=== PATIENT | female | born 1940 | race Caucasian/White ===

== ENCOUNTER 2017-03-21 15:21 | Inpatient (IN) | payer OTHER ==
[~2017-03-21] VITALS: Ht 157.5 cm; Wt 64.0 kg
[2017-03-21 15:26] VITALS: BP_SYST 145
[2017-03-21] MEDS ORDERED: ASPIRIN 325 MG TABLET PO ONE (15:45)
[2017-03-21] MEDS ORDERED: NITROGLYCERIN 0.4 MG TAB.SUBL SL ONE (15:45)
[2017-03-21] MEDS ORDERED: ALPRAZolam 0.25 MG TABLET PO ONE (16:00)
[2017-03-21 16:05] LABS: BASOPHILS # (AUTO) 0.1 K/uL (0.0-0.2); BASOPHILS % (AUTO) 0.6 % (0.0-2.0); EOSINOPHILS # (AUTO) 0.4 K/uL (0.0-0.4); EOSINOPHILS % (AUTO) 4.9 % (0.0-4.0); HEMATOCRIT 39.1 % (36-48); HEMOGLOBIN 12.9 g/dL (12.0-16.0); LYMPHOCYTES # (AUTO) 3.1 K/uL (1.0-5.5); LYMPHOCYTES % (AUTO) 35.5 % (20.5-51.5); MEAN CORPUSCULAR HEMOGLOBIN 30 pg (27-31); MEAN CORPUSCULAR HGB CONC 33 % (32-36); MEAN CORPUSCULAR VOLUME 89 fL (79.0-98.0); MONOCYTES % (AUTO) 11.8 % (1.7-9.3); NEUTROPHILS # (AUTO) 4.2 K/uL (1.8-7.7); NEUTROPHILS % (AUTO) 47.2 % (40.0-70.0); PLATELET COUNT (AUTO) 355 K/uL (130-430); RED BLOOD CELL COUNT(AUTO) 4.39 MIL/uL (4.2-6.2); RED CELL DISTRIBUTION WIDTH 13.6 % (9.0-15.0); WHITE BLOOD COUNT (AUTO) 8.8 K/uL (4.8-10.8)
[2017-03-21 16:23] LABS: ANION GAP 7 (5-15); CALCIUM 8.7 mg/dL (8.4-11.0); CHLORIDE 104 mmol/L (98-107); CREATININE 0.92 mg/dL (0.55-1.30); GLUCOSE 66 mg/dL (70-99); POTASSIUM 4.1 mmol/L (3.5-5.1); SODIUM SERUM 137 mmol/L (136-145); UREA NITROGEN, BLOOD 21 mg/dL (8-21)
[2017-03-21 16:24] LABS: BILIRUBIN,URINE NEGATIVE (NEGATIVE); CLARITY/URINE SL HAZY (CLEAR); COLOR,URINE YELLOW (YELLOW); GLUCOSE,URINE NEGATIVE (NEGATIVE); KETONES,URINE NEGATIVE (NEGATIVE); LEUKOCYTE ESTERASE ,URINE 2+ (NEGATIVE); NITRITE, URINE NEGATIVE (NEGATIVE); PH,URINE 6.5 (5.0-8.0); PROTEIN URINE NEGATIVE (NEGATIVE); UROBILINOGEN,URINE 0.2 (0.2-1.0)
[2017-03-21 16:25] LABS: INR 0.9 (0.8-1.2); PROTHROMBIN TIME 10.3 SECS (9.5-12.5)
[2017-03-21 16:28] LABS: ALANINE AMINOTRANSFERASE 29 U/L (12-78); ALBUMIN 3.5 g/dL (3.4-4.8); ASPARTATE AMINOTRANSFERASE 23 U/L (10-37); CREATINE KINASE, TOTAL 93 U/L (26-192); TOTAL BILIRUBIN 0.3 mg/dL (0.0-1.0); TOTAL PROTEIN, SERUM 8.4 g/dL (6.4-8.3)
[2017-03-21 16:38] LABS: BLOOD, URINE TRACE (NEGATIVE)
[2017-03-21 16:40] LABS: BACTERIA,URINE MODERATE /HPF (None Seen); MUCUS,URINE None Seen /LPF (None Seen); RBC,URINE 0-3 /HPF (0-3); WBC,URINE 50-80 /HPF (0-3)
[2017-03-21] MEDS ORDERED: NACL 0.9% 1,000 ML IV ONE (17:00)
[2017-03-21] MEDS ORDERED: IOHEXOL 350 mgI/mL, 150 ML INFUS..BTL IV ONE (17:22)
[2017-03-21] MEDS ORDERED: ALPR-372 PO (18:22)
[2017-03-21] MEDS ORDERED: ALBU2.5V7 INH (18:22)
[2017-03-21] MEDS ORDERED: PANT40TA4 PO (18:22)
[2017-03-21] MEDS ORDERED: LISI30TA36 PO (18:22)
[2017-03-21] MEDS ORDERED: AMLO10TA88 PO (18:22)
[2017-03-21 18:33] VITALS: BP_SYST 113
[2017-03-21 20:00] VITALS: BP_SYST 110
[2017-03-21] MEDS ORDERED: ACETAMINOPHEN 325 MG TABLET PO PRN (21:15)
[2017-03-21] MEDS ORDERED: ALPRAZolam 0.25 MG TABLET PO PRN (21:15)
[2017-03-21] MEDS ORDERED: ZOLPIDEM TARTRATE 5 MG TABLET PO PRN (21:15)
[2017-03-21] MEDS ORDERED: INSULIN ASPART 100 UNITS/ML, 10 ML VIAL (NovoLOG) SUBCUT PRN (21:15)
[2017-03-21] MEDS: POTASSIUM CHLORIDE 10 MEQ in D5/0.45 NS 1,000 ML IV SCH (22:15)
[2017-03-22] VITALS (7 sets, daily range): BP systolic 109–132
[2017-03-22] MEDS: ASPIRIN 81 MG TAB.CHEW PO SCH (08:16)
[2017-03-22] MEDS: PANTOPRAZOLE SODIUM 40 MG TAB PO SCH (08:16)
[2017-03-22] MEDS: amLODIPine BESYLATE 10 MG TABLET PO SCH (08:17)
[2017-03-22] MEDS: LISINOPRIL 10 MG TABLET (PRINIVIL) PO SCH (08:17)
[2017-03-22] MEDS: cefTRIAXone 1 GM IVPB PREMIX 50 ML IV SCH (14:29)
[2017-03-22] MEDS: POTASSIUM CHLORIDE 10 MEQ in D5/0.45 NS 1,000 ML IV SCH (17:29)
[2017-03-23 03:40] VITALS: BP_SYST 127
[2017-03-23 08:00] VITALS: BP_SYST 112
[2017-03-23] MEDS: PANTOPRAZOLE SODIUM 40 MG TAB PO SCH (08:47)
[2017-03-23] MEDS: amLODIPine BESYLATE 10 MG TABLET PO SCH (08:47)
[2017-03-23] MEDS: LISINOPRIL 10 MG TABLET (PRINIVIL) PO SCH (08:47)
[2017-03-23] MEDS: ASPIRIN 81 MG TAB.CHEW PO SCH (08:47)
[2017-03-23 12:10] VITALS: BP_SYST 104
[2017-03-23 12:16] VITALS: BP_SYST 104
[2017-03-23] MEDS: cefTRIAXone 1 GM IVPB PREMIX 50 ML IV SCH (12:59)
[2017-03-23 13:11] LABS: A/G RATIO 0.9 (0.7-1.7); ALBUMIN 3.6 g/dL (2.9-4.4); ALPHA-1-GLOBULIN 0.2 g/dL (0.0-0.4); ALPHA-2-GLOBULIN 0.7 g/dL (0.4-1.0); BETA GLOBULIN 0.9 g/dL (0.7-1.3); GAMMA GLOBULIN 2.2 g/dL (0.4-1.8); GLOBULIN, TOTAL 4.1 g/dL (2.2-3.9); M-SPIKE 1.7 g/dL (Not Observed)
[2017-03-23] MEDS ORDERED: NITR-85 PO (14:03)
[2017-03-23] MEDS: POTASSIUM CHLORIDE 10 MEQ in D5/0.45 NS 1,000 ML IV SCH (14:06)
[2017-03-23 14:25] VITALS: BP_SYST 104
[2017-03-23 16:25] VITALS: BP_SYST 139
== END 2017-03-23 16:15 | disposition home or self-care (01) | DRG 690 ==
LOC: SED 15:21 → STU 18:14
PROVIDERS: ADMIT Internal Medicine; ATTEND Internal Medicine
DX: N39.0 Urinary tract infection, site not specified (principal); G95.9 Disease of spinal cord, unspecified; C90.00 Multiple myeloma not having achieved remission; R07.9 Chest pain, unspecified; F41.1 Generalized anxiety disorder; I10 Essential (primary) hypertension; M81.0 Age-related osteoporosis without current pathological fracture; J44.9 Chronic obstructive pulmonary disease, unspecified; E16.2 Hypoglycemia, unspecified; K21.9 Gastro-esophageal reflux disease without esophagitis; Z79.01 Long term (current) use of anticoagulants; Z82.49 Family history of ischemic heart disease and other diseases of the circulatory system; Z90.49 Acquired absence of other specified parts of digestive tract; Z79.899 Other long term (current) drug therapy
CPT/HCPCS: 36415; 71010; 71275; 80053; 81000-TC; 82550-TC; 82962; 83605; 83880; 84155; 84165; 84484; 85025; 85379; 85610-TC; 87040-TC; 87086; 87186-TC; 93005; 93306; 96360; 99285; J0696; J1815; J3480; J7030; Q9967